=== PATIENT | male | born 1960 | race Caucasian/White ===

== ENCOUNTER 2021-01-06 08:23 | Outpatient (REF) | payer OTHER, SELFPAY ==
[2021-01-06 09:11] LABS: MANUAL DIFF FLAG NO
[2021-01-06 09:17] LABS: Basophils Percent Auto 0.3 % (0-2); Eosinophils Absolute Auto 0.2 X10*3/uL (0.0-0.4); Eosinophils Percent Auto 2.6 % (0-4); Hematocrit 44.2 % (42-52); Imm Gran Abs Auto 0.01 X10*3/uL (0.00-0.03); Imm Gran Pct Auto 0.2 % (0.0-0.4); Lymphocytes Absolute Auto 1.7 X10*3/uL (1.2-4.9); Lymphocytes Percent Auto 28.8 % (20-40); Mean Corpuscular HGB Conc 33.9 g/dl (31.0-36.0); Mean Corpuscular Hemoglobin 31.3 pg (27.0-33.0); Mean Corpuscular Volume 92.3 fL (80-98); Mean Platelet Volume 9.9 fL (9.4-12.4); Monocytes Absolute Auto 0.5 X10*3/uL (0.1-1.2); Monocytes Percent Auto 8.6 % (2-11); Neutrophils Absolute Auto 3.4 X10*3/uL (2.0-8.3); Neutrophils Percent Auto 59.5 % (45-73); Platelet Count 213 X10*3/uL (160-400); Red Blood Count 4.79 X10*6/uL (4.60-5.80); Red Cell Distribution Width 12.2 % (11.0-16.0); White Blood Count 5.8 X10*3/uL (4.8-10.8)
[2021-01-06 09:26] LABS: Glucose Urine UA NEG (NEG); Leukocyte Esterase Urine NEG (NEG); Nitrite Urine NEG (NEG); Specific Gravity - Urine 1.025 (1.005-1.025); Urine Blood NEG (NEG); Urine Ketones NEG (NEG); Urine Protein NEG (NEG-TRACE)
[2021-01-06 09:27] LABS: Appearance Urine CLEAR; Color Urine YELLOW
[2021-01-06 09:47] LABS: Alanine Aminotransferase 25 U/L (0-40); Albumin Level 4.1 g/dL (3.5-5.0); Alkaline Phosphatase 64 U/L (39-117); Anion Gap 10 (12-20); Aspartate Amino Transferase 17 U/L (5-37); Bilirubin Total 1.2 mg/dL (0.0-1.0); Blood Urea Nitrogen 27 mg/dL (9-16); Calcium 9.1 mg/dL (8.4-10.2); Carbon Dioxide 29 mmol/L (22-29); Chloride 106 mmol/L (96-108); Cholesterol 165 mg/dL; Estimated Glomerular Filt Rate > 60; Glucose Fasting 97 mg/dL (60-99); HDL Cholesterol 43 mg/dL; LDL Cholesterol Calculated 107 mg/dl; Potassium 4.5 mmol/L (3.3-5.1); Sodium 140 mmol/L (135-145); Total Protein 6.5 g/dL (6.5-8.0); Triglycerides 75 mg/dL; Uric Acid 7.1 mg/dL (3.4-7.0)
[2021-01-06 10:00] LABS: Prostate Specific Antigen Scr 1.27 ng/mL (<0.05-4.0)
== END 2021-01-06 08:24 | disposition home or self-care (01) ==
LOC: HO.LAB 08:23
PROVIDERS: PCP Internal Medicine; Visit Provider Internal Medicine
DX: Z00.00 Encounter for general adult medical examination without abnormal findings (principal); Z87.39 Personal history of other diseases of the musculoskeletal system and connective tissue; Z12.5 Encounter for screening for malignant neoplasm of prostate
CPT/HCPCS: 36415; 80053; 80061; 81003; 84153; 84550; 85025

== ENCOUNTER 2024-12-15 14:43 | Outpatient (AMB) | payer OTHER, SELFPAY ==
--- NOTE | 2024-12-15 14:46 | A.OFFPC_ITS ---
Vital Signs 12/15/24 14:52 Height 5 ft 11 in Weight 219 lb BMI 30.5 BP 124/76 Blood Pressure Location Lt brachial Position Sitting Pulse 89 Pulse Source Pulse Oximeter Temp 97.3 F Temp Source Axillary Pulse Oximetry (%) 98 Oxygen Delivery Method Room Air Intake Visit Reasons: Routine Real Estate Financial Analyst Required: No Accompanied by: Self / Same As Patient Allergies amoxicillin [AMOXICILLIN] Allergy (Unknown, Unverified 12/15/24 14:47) RASH Tobacco use date assessed: 12/15/24 Dental Screening Dental Screen Date: 12/15/24 Did you have a dental visit in the last 12 months?: Yes Did you have a dental problem in the last 6 months where you did not have access to dental care?: No PFSH Medical History (Updated 12/15/24 @ 15:29 by Andrés Pretty MD) Hyperlipidemia Surgical History History of colonoscopy (~12/03/18) Family History (Updated 12/15/24 @ 14:59 by Melinda Villanueva CMA) Mother Gallbladder cancer Father BP (high blood pressure) Social History Housing: House Patient Tobacco Use Status: Never used Tobacco e-Cigarette/Vaping Use: Never Used service: No Current occupational status: employed Cognitive needs: No Hearing needs: No Vision needs: Yes (rx glasses) Questionnaire PHQ-9 Over the last 2 weeks, how often have you been bothered by any of the following problems? 1. Little interest or pleasure in doing things: not at all 2. Feeling down, depressed, or hopeless: not at all 3. Trouble falling or staying asleep, or sleeping too much: not at all 4. Feeling tired or having little energy: not at all 5. Poor appetite or overeating: not at all 6. Feeling bad about yourself - or that you are a failure or have let yourself or your family down: not at all 7. Trouble concentrating on things, such as reading the newspaper or watching television: not at all 8. Moving or speaking so slowly that other people could have noticed. Or the opposite - being so fidgety or restless that you have been moving around a lot more than usual: not at all 9. Thoughts that you would be better off or of hurting yourself in some way: not at all Total score: 0 Source: Developed by Drs. Jett Garcia, Isra Gaytan and colleagues, with an educational manjo from [employer]. Thrive Questionnaire Date Thrive assessed: 12/15/24 I am a: Patient Within the past 12 months, did the food you bought not last and you didn't have the money to get more?: Never true Within the past 12 months, did you worry whether your food would run out before you got money to buy more?: Never true Do you have trouble paying for medicines?: No Do you have trouble getting transportation to medical appointments?: No Do you have trouble paying your heating and electricity bill?: No Do you have trouble taking care of your child, family member or friend?: No Do you have trouble with day-to-day activities such as bathing, preparing meals, shopping, managing finances, etc.?: No Are you currently unemployed and looking for a job?: No Are you interested in more education?: No THRIVE Score: 0 AUDIT C Alcohol Use Questionnaire (AUDIT-C) 1. How often do you have a drink containing alcohol?: Never 3. How often do you have six or more drinks on one occasion?: Never Total Score: 0 ANIYAH-7 AMB Questionnaire ANIYAH-7 Date ANIYAH - 7 assessed: 12/15/24 Feeling nervous, anxious, or on edge: 0 = Not at all Not being able to stop or control worryin = Not at all Worrying too much about different things: 0 = Not at all Trouble relaxin = Not at all Being so restless that it is hard to sit still: 0 = Not at all Becoming easily annoyed or irritable: 0 = Not at all Feeling afraid as if something awful might happen: 0 = Not at all Total ANIYAH-7 score (0-4 normal; 5-9 mild; 10-14 moderate; 15-21 severe): 0 Source: Developed by Drs. Jett Garcia, Isra Gaytan and colleagues, with an educational manoj from [employer]. Physical exam (Primary Care) Vital Signs: Last Vital Signs Temp 97.3 F 04/16/25 14:52 Pulse 89 12/15/24 14:52 BP 124/76 12/15/24 14:52 Pulse Ox 98 12/15/24 14:52 Oxygen Delivery Method Room Air 12/15/24 14:52 BMI result Body Mass Index 30.5 Tobacco/Smoking Status: Tobacco use Status Tobacco use date assessed 12/15/24 12/15/24 14:48 Patient Tobacco Use Status Never used Tobacco 12/15/24 14:48 e-Cigarette/Vaping Use Never Used 12/15/24 14:48 PHQ-9: PHQ-9 Score PHQ-9: Total score 0 12/15/24 15:00 Thrive Assessment: Date of Thrive Assessment Date Thrive assessed 12/15/24 12/15/24 14:48 Coding Level of Care Code New Pt Level 4 (26248) Complex EM visit Add On G2211 Diagnoses Hyperlipidemia E78.5 Assessment & Plan Assessment & Plan (1) Hyperlipidemia: Code(s): E78.5 - Hyperlipidemia, unspecified Category: Medical Plan: Blood work has been ordered. Will call with results Plan History of Present Illness The patient is a 64-year-old male presenting with multiple chronic conditions and related health management. He experiences gout managed with daily allopurinol, initiated due to past recurrent attacks. He is on simvastatin for hypercholesterolemia and acyclovir for herpes simplex infection. 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 Past medical history includes concern for gallbladder cancer due to family history, specifically his mother's stage IV diagnosis, resulting in rare but cautious monitoring. He had an inconclusive MRI exploring potential gallbladder issues and underwent a colonoscopy at age 58. The patient abstains from smoking and has significantly reduced alcohol consumption. He had COVID-19 in October 2021. 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 - Family Status: . - Smoking Status: Does not smoke. - Alcohol Use: Significantly reduced, occasional consumption. - Activity Level and Weight: Experienced weight reduction from 230-232 lbs to 219 lbs. - Family History: Notable for maternal gallbladder cancer. Review of Systems - Musculoskeletal: Reports chronic back pain - Urogenital: Reports recurrent herpes simplex infection - Cardiovascular: Denies current issues, reports hypercholesterolemia - Metabolic: Reports gout - Respiratory: Denies smoking - Gastrointestinal: Denies current symptoms, concerned about family history of gallbladder cancer - Integumentary: Denies new symptoms, has herpes simplex - Neurological: Denies new symptoms - General: Reports past COVID-19 infection Physical Exam General: Cooperative and healthy appearing Nutritional Appearance: Well nourished Orientation/consciousness: Patient oriented x3 Limitations: No limitations Head: Normal to inspection General: Appearance normal, both eyes and all related structures Neck: Normal visual inspection Chest: Normal palpation of entire chest wall Respiratory: N ormal respiratory effort Neurology: Patient oriented x3, no signs of neurological deficits. Results Plan I discussed continuing prescription management for gout, hypercholesterolemia, and herpes simplex infection as insurance changes. Blood work has been ordered to assess diabetes, cholesterol, and other factors, and I will review results once completed. Addressing family cancer concerns via thorough analysis of his past imaging and controlling weight will mitigate risks. With decreased alcohol intake, ongoing weight monitoring contributed positively to his back pain reduction. The patient is advised to follow up with a new clinician for enhanced preventive screenings, including another colonoscopy. Patient was informed and verbally consented to the use of an ambient scribe for clinic note documentation during this visit. Discussion Notes During the visit, I deliberated the management plan for chronic conditions requiring ongoing prescription refills. The patient provided insurance updates affecting medication coverage, leading us to ensure seamless continuation. The planned comprehensive blood work evaluates potential diabetes and cholesterol concerns. Given the patient?s family history, I discussed the implications of potential hereditary gallbladder cancer. The plan emphasized benefits and decreased long-term risk with consistent medication adherence, weight management improvements, and prudent alcohol consumption. The patient will transition to a new follow-up schedule with another physician for continued preventative healthcare. Patient Instructions - Continue taking prescribed medications as directed. - Schedule and complete blood work per requisition. - Monitor your weight and maintain current lifestyle changes. - Consult with a new healthcare provider for ongoing preventive care. - Revisit colonoscopy scheduling for continued gastrointestinal tract monitoring. - Contact us if you experience new symptoms or concerns related to your conditions. - Follow-up advice on your health insurance changes to maintain medication access. Orders: Orders Complete Blood Count no Diff Today E78.5 - Hyperlipidemia, unspecified Liver Panel Today E78.5 - Hyperlipidemia, unspecified Thyroid Stimulating Hormone Today E78.5 - Hyperlipidemia, unspecified Basic Metabolic Panel Today E78.5 - Hyperlipidemia, unspecified UA and rflx microscopic Today E78.5 - Hyperlipidemia, unspecified Medications: New acyclovir 400 mg PO .QD 90 tabs 1RF simvastatin 40 mg PO BEDTIME 90 tabs 1RF allopurinol 100 mg PO DAILY 90 tabs 1RF
[2024-12-15 14:52] VITALS: BP 124/76; PULSE 89; TEMP 36.3; O2SAT 98; BMI 30.5
--- OUTSIDE RECORDS SUMMARY | 2024-12-15 17:27 | XMS_ITS | Referral Summary ---
Author Organization [facility] Address [address] [place] [address] Care Team Providers Care Subject Scientific Research Name Role Phone Jose J Mancuso MD Primary Care Provider [phone] Social History Tobacco Use Types Packs/Day Years Used Date Smoking Tobacco: Never Assessed Sex and Gender Information Value Date Recorded Sex Assigned at Not on file Legal Sex Male 4:36 PM EST Gender Identity Not on file Sexual Orientation Not on file Plan of Treatment Not on file Insurance [facility] HMO/POS Care Teams Subject Scientific Research Relationship Specialty Start Date End Date Jose J Mancuso MD [address] [place] [address] [place] [id number] PCP - General Family Medicine 10/18/22
--- OUTSIDE RECORDS SUMMARY | 2024-12-15 17:27 | XMS_ITS | Clinical Summary ---
Author Organization [facility] Address [address] [place] [address] Care Team Providers Care Shear Assembler Name Role Phone Jose J Mancuso MD Primary Care Provider [phone] Social History Tobacco Use Types Packs/Day Years Used Date Smoking Tobacco: Never Assessed Sex and Gender Information Value Date Recorded Sex Assigned at Not on file Legal Sex Male 4:36 PM EST Gender Identity Not on file Sexual Orientation Not on file Plan of Treatment Health Maintenance Due Date Last Done Comments Hepatitis C Screening 1962 HIV Screening 1977 Annual Wellness Visit 1980 DTaP,Tdap,and Td Vaccines (1 - Tdap) 1981 CT Colonography 2007 Colonoscopy 2007 Colorectal Cancer Screening 2007 FIT-DNA 2007 FIT 2007 FOBT 2007 Sigmoidoscopy 2007 Zoster Vaccines (1 of 2) 2012 Influenza Vaccine (Season Ended) 2025 Respiratory Syncytial Virus (RSV): 60+ years (1 - 1-dose 75+ series) 2037 HPV Vaccines Aged Out No longer eligi ble based on patient's age to complete this topic Meningococcal Vaccine Aged Out No tawana leana eligible based on patient's age to complete this topic Pneumococcal Vaccine: Pediat rics (0 to 5 Years) and At-Risk Patients (6 to 64 Years) Aged Out No longer eligible b ased on patient's age to complete this topic Insurance [facility] HMO/POS Care Teams Shear Assembler Relationship Specialty Start Date End Date Jose J Mancuso MD [address] [place] [address] [place] [id number] PCP - General Family Medicine 10/18/22
== END 2024-12-15 15:27 | disposition home or self-care (01) ==
LOC: HO.HMCHD 14:43
PROVIDERS: PCP Internal Medicine; Visit Provider Internal Medicine
DX: E78.5 Hyperlipidemia, unspecified (principal)

== ENCOUNTER → 2024-12-15 14:43 | Outpatient (BNVA) | payer OTHER, SELFPAY | PROVIDERS: PCP Internal Medicine; Visit Provider Internal Medicine ==